=== PATIENT | male | born 1970 | race Two or more races ===

== ENCOUNTER 2022-07-26 02:11 | Emergency (ER) | payer OTHER ==
[~2022-07-26] VITALS: Ht 172.7 cm; Wt 93.0 kg
[2022-07-26 02:13] VITALS: BP 100/60
--- NOTE | 2022-07-26 02:25 | NUR ---
PATIENT JOSE ANABEL [facility]. PATIENT EXAMINED BY DR. MCDANIEL. PATIENT MEDICALLY CLEARED AND RELEASED IN CUSTODY IN STABLE CONDITION. ORIGINAL PRE-BOOK FORM GIVEN TO OFFICER KERVIN #[id number]
--- NOTE | 2022-07-26 02:25 | NUR ---
Patient discharged with v/s stable. Written and verbal after care instructions given and explained. Patient verbalized understanding. Ambulatory with steady gait, [id number] per P All questions addressed prior to discharge.
== END 2022-07-26 02:26 ==
LOC: MED 02:11
DX: Z02.89 Encounter for other administrative examinations (principal)
CPT/HCPCS: 99283